=== PATIENT | female | born 1995 | race Two or more races ===

== ENCOUNTER → 2024-03-03 | Outpatient (CLI) | payer SELFPAY ==
--- NOTE | 2024-03-03 13:30 | XR_ITS ---
Examination: CT soft tissue neck, with intravenous contrast. 2-D coronal reconstructions. 2-D sagittal reconstructions. Date and time of exam :March 03, 2024 1531 hours INDICATIONS: Palpable mass left neck beginning 4 months ago, ultrasound soft tissue neck September 13, 2023 lymph nodes in the area concern left neck 9 mm, 7 mm. CTDI: vol (mGy):10.5 DLP: (mGycm):316 Technique: 1.25 mm axial sections of the neck of the obtained. Coronal and sagittal reconstructions have been obtained. Intravenous contrast administered 60 cc Isovue-370. Low dose protocols were performed. One or more of the following dose reduction techniques were used; automated exposure control, adjustment of the mA and/or KV according to patient size, use of iterative reconstruction technique. Findings: Symmetrical nasopharynx oropharynx Subcentimeter bilateral carotid triangle lymph nodes Subcentimeter posterior cervical lymph nodes The larynx appears normal Symmetrical thyroid lobes Normal epiglottis No prevertebral soft tissue prominence IMPRESSION: No pathologic cervical lymphadenopathy Recommend 3 month follow-up ultrasound soft tissue of any palpable neck masses
[2024-03-03 13:32] LABS: HCG Qualitative,Urine Negative
== END | disposition home or self-care (01) ==
PROVIDERS: PCP Physician Assistant; Referring Provider Nurse Practitioner Family; Visit Provider Nurse Practitioner Family
DX: D64.9 Anemia, unspecified (principal); D50.9 Iron deficiency anemia, unspecified; Z32.00 Encounter for pregnancy test, result unknown
CPT/HCPCS: 70491; 81025; A4649; Q9967

== ENCOUNTER 2024-04-07 09:55 | Outpatient (RCR) | payer MEDICAID, SELFPAY | END 2024-04-24 23:59 | disposition home or self-care (01) | LOC: SCTC 09:55 | PROVIDERS: PCP Physician Assistant; Referring Provider Nurse Practitioner Family; Visit Provider Nurse Practitioner Family | DX: D50.9 Iron deficiency anemia, unspecified (principal); N92.0 Excessive and frequent menstruation with regular cycle; Z98.84 Bariatric surgery status; E53.8 Deficiency of other specified B group vitamins; R22.1 Localized swelling, mass and lump, neck | CPT/HCPCS: 99212; G0463 ==

== ENCOUNTER 2024-06-17 15:41 | Emergency (ER) | payer MEDICAID, SELFPAY ==
[2024-06-17 15:43] VITALS: BMI 34.7
[2024-06-17 16:05] VITALS: BP 102/69; PULSE 80; RESP 18; TEMP 37.1; O2SAT 98
--- NOTE | 2024-06-17 16:58 | PD.EDRME ---
Rapid Medical Screening Exam RME Arrival date/time: 06/17/24 15:41 28-year-old female with no known medical history presents to the emergency room with a chief complaint of a sore throat, near syncopal episode that occurred today while driving, and a throbbing headache since Saturday. I have greeted and performed a focused initial assessment of this patient. A comprehensive ED assessment and evaluation of the patient, analysis of all test results, and completion of the medical decision making process will be conducted by additional ED providers. Chief Complaint: Flu Like Symptoms Time Seen by Provider: 06/17/24 16:11 Vital signs: Vital Signs Temperature 98.7 F 06/17/24 16:05 Pulse Rate 80 06/17/24 16:05 Respiratory Rate 18 06/17/24 16:05 Blood Pressure 102/69 06/17/24 16:05 Pulse Oximetry (%) 98 06/17/24 16:05 Oxygen Delivery Method Room Air 06/17/24 16:05 Vital signs reviewed by provider: Yes
[2024-06-17 16:59] LABS: Basophils % (Auto) 1 % (0-2.5); Eosinophils # (Auto) 0.1 Thou/mm3 (0.0-0.5); Eosinophils % (Auto) 1 % (0-10); Hematocrit 22.5 % (36.0-46.0); Immature Granulocytes % (Auto) 0 % (0-0); Immature Granulocytes Auto 0.03 Thou/mm3 (0.00-0.00); Lymphocytes % (Auto) 22 % (10-50); Mean Corpuscular HGB Conc 31.1 g/dl (31.0-37.0); Mean Corpuscular Hemoglobin 23.5 pg (25.0-35.0); Mean Corpuscular Volume 76 fL (80-100); Monocytes # (Auto) 0.7 Thou/mm3 (0.0-0.8); Monocytes % (Auto) 8 % (0-12); Neutrophils # (Auto) 6.1 Thou/mm3 (1.8-7.7); Neutrophils % (Auto) 69 % (37-80); Nucleated Red Blood Cell % 0 /100 WBC (0); Platelet Count 268 Thou/mm3 (140-440); RDW Standard Deviation 41.6 fL (36.4-46.3); Red Blood Count 2.98 Miln/mm3 (4.00-5.20); White Blood Count 8.8 Thou/mm3 (3.6-11.0)
[2024-06-17 17:07] LABS: Alanine Aminotransferase 9 U/L (10-49); Albumin, Serum 4.1 gm/dL (3.5-5.0); Albumin/Globulin Ratio 1.6 (1.2-2.2); Alkaline Phosphatase 82 U/L (46-116); Anion Gap 9 (7-16); Aspartate Amino Transferase 12 U/L (0-34); BUN/Creatinine Ratio 22 Ratio (12-20); Bilirubin,Total 0.3 mg/dL (0.3-1.2); Blood Urea Nitrogen 13 mg/dL (9-23); Calcium 9.1 mg/dL (8.3-10.6); Calcium (Corrected) 9.1 mg/dL (8.5-10.1); Carbon Dioxide 23.7 mMol/L (20.0-31.0); Chloride 104 mMol/L (98-107); Creatinine (Component) 0.6 mg/dL (0.6-1.3); Estimated Creatinine Clearance 144.8 mL/min (>60); Globulin 2.5 gm/dL (2.3-3.5); Glucose 88 mg/dL (74-106); Osmolality,Calculated 272 (275-295); Potassium 4.2 mMol/L (3.4-5.1); Sodium 137 mMol/L (136-145); Total Protein 6.6 gm/dL (5.7-8.2); eGFR > 60 See Note
[2024-06-17] MEDS: METOCLOPRAMIDE LIQD 10 MG/10 ML UDC PO (17:28)
[2024-06-17] MEDS: KETOROLAC INJ 60 MG/2 ML VIAL 30 MG IM (17:29)
[2024-06-17] MEDS: SUMAtriptan INJ 6 MG/0.5 ML VIAL SC (17:29)
[2024-06-17 17:42] LABS: Strep A Rapid Positive (Negative)
--- NOTE | 2024-06-17 18:45 | EDNOTE_ITS ---
Upper Respiratory Inf. RME/HPI General Chief Complaint: Flu Like Symptoms Stated Complaint: Sore throat, near syncope, PAIGE Time Seen by Provider: 06/17/24 16:11 Arrival date/time: 06/17/24 15:41 28F with history of MARILUZ presents to ED with several days of sore throat and PAIGE. There was also a near syncopal episode today while driving. Patient recently had an . Patient has been taking her iron supplements and is working with a securities counselor. Limitations: no limitations RME / HPI RME / HPI Narrative: 06/17/24 15:41 28-year-old female with no known medical history presents to the emergency room with a chief complaint of a sore throat, near syncopal episode that occurred today while driving, and a throbbing headache since Saturday. I have greeted and performed a focused initial assessment of this patient. A comprehensive ED assessment and evaluation of the patient, analysis of all test results, and completion of the medical decision making process will be conducted by additional ED providers. Related Data Previous Rx's ?Medication ?Instructions ?Recorded amoxicillin 500 mg tablet 500 mg PO BID 10 days #20 ta bs 06/18/24 Allergies Allergy/AdvReac Type Severity Reaction Status Date / Time sulfamethoxazole (From Allergy Verified 06/17/24 15:43 Bactrim) trimethoprim (From Bactrim) Allergy Verified 06/17/24 15:43 Review of Systems Review of Systems Systems Reviewed: All systems reviewed, normal except as documented Constitutional Constitutional: Reports system reviewed and no additional complaints, except as documented, Reports as per HPI, Denies fever(s), Reports headache(s) and Reports weakness ENT Ears, Nose, Mouth, and Throat: Reports as per HPI, Denies disequilibrium, Reports headache(s) and Reports sore throat Cardiovascular Cardiovascular: Reports system reviewed and no additional complaints, except as documented, Denies chest pain and Denies dyspnea Respiratory Respiratory: Reports system reviewed and no additional complaints, except as documented, Denies cough and Denies dyspnea Gastrointestinal Gastrointestinal: Reports system reviewed and no additional complaints, except as documented, Denies abdominal pain, Denies nausea and Denies vomiting Neurologic Neurologic: Reports system reviewed and no additional complaints, except as documented, Reports as per HPI, Denies confusion, Denies disequilibrium, Reports headache(s), Reports weakness and Reports other (near syncope) Psychiatric Psychiatric: Denies confusion Past Medical History Social History SMOKING STATUS: Never smoker ED Exam General Limitations: Present no limitations General appearance: Present alert and in no apparent distress Head Head exam: Present atraumatic Eye Eye exam: Present normal appearance, PERRL and EOMI ENT ENT exam: Present mucous membranes moist Expanded ENT Exam Throat exam: Present tonsillar erythema; Absent tonsillomegaly, tonsillar exudate, R peritonsillar mass, L peritonsillar mass or muffled voice Neck Neck exam: Present normal inspection, full ROM and trachea midline Chest Chest inspection: Present normal inspection and symmetric chest wall rise Respiratory Respiratory exam: Present normal lung sounds bilaterally Cardiovascular Cardiovascular exam: Present regular rate, normal rhythm and normal heart sounds Abdominal Exam Abdominal exam: Present soft and normal bowel sounds Extremities Exam Extremities exam: Present normal inspection and full ROM Back Exam Back exam: Present normal inspection and full ROM Neurological Exam Neurological exam: Present alert, oriented X3 and CN II-XII intact Psychiatric Psychiatric exam: Present normal affect and normal mood Skin Skin exam: Present warm, dry, intact and normal color Course Quality Measures none Orders Category Date Time Status Bedside COVID-19 Antigen Test NOW Care 06/17/24 16:00 Active Bedside Influenza A&B Antigen Test NOW Care 06/17/24 16:00 Completed Insert IV NOW Care 06/17/24 18:46 Active CBC Stat Lab 06/17/24 16:30 Completed CMP [Comprehensive Metabolic Panel] Stat Lab 06/17/24 16:30 Completed Strep A Rapid Stat Lab 06/17/24 16:17 Completed Type and Screen Stat Lab 06/17/24 18:58 Results prbc [Red Blood Cells] Stat Lab 06/17/24 18:58 Results Ketorolac Inj [Toradol Inj] Med 06/17/24 16:10 Discontinued 30 mg IM X1 ONE Metoclopramide [Reglan] Med 06/17/24 16:10 Discontinued 10 mg PO X1 ONE SUMAtriptan INJ [Imitrex Inj] Med 06/17/24 16:10 Discontinued 6 mg SC X1 ONE cefTRIAXone/D5w 1gm IV premix [Rocephin/D5w 1gm IV Med 06/17/24 18:47 Discontinued premix] 1 gm in 50 ml IV X1 Vital Signs Vital signs: Vital Signs Temperature 98.7 F 06/17/24 16:05 Pulse Rate 80 06/17/24 16:05 Respiratory Rate 18 06/17/24 16:05 Blood Pressure 102/69 06/17/24 16:05 Pulse Oximetry (%) 98 06/17/24 16:05 Oxygen Delivery Method Room Air 06/17/24 16:05 O2 at 98% on RA and WNLs Upper Respiratory Infection MDM Narrative MDM Narrative:: 28F with history of MARILUZ presents to ED with several days of sore throat and PAIGE. There was also a near syncopal episode today while driving. Patient recently had an . Patient has been taking her iron supplements and is working with a securities counselor. Physical exam reveals normal pupil response and EOM. Red oropharynx, but otherwise clear ENT and lungs. Patient is afebrile, calm, and alert. PAIGE improved with meds. Strep+. HgB 7.0. 2 units given w/o incident. French Weaver given. Patient data External records reviewed:: [facility] previous records Clinical information provided by:: patient Social determinants that could affect healthcare access:: none Patient has the following chronic illnesses:: MARILUZ How is presenting disease/condition affected by chronic disease/condition?: exacerbated by Evaluation data The following diagnostics were reviewed and interpreted by me:: lab results Lab and/or radiology exams considered but not ordered:: ordered Interpretation Summary: above Medications / Prescriptions Medications or Prescriptions considered but not ordered:: ordered Medication administrations:: Medication Administration History Discontinued Medications Ceftriaxone Sodium/Dextrose (Rocephin/D5w 1gm Iv Premix) 1 gm in 50 mls @ 100 mls/hr IV X1 ONE Stop: 06/17/24 19:16 Last Infusion: 06/17/24 20:28 Dose: Infused Documented By: Admin: 06/17/24 19:47 Dose: 100 mls/hr Documented By: DAVID Ketorolac Tromethamine (Ketorolac Inj 60 Mg/2 Ml Vial) 30 mg IM X1 ONE Stop: 06/17/24 16:11 Last Admin: 06/17/24 17:29 Dose: 30 mg Documented By: DAVID Metoclopramide HCl (Metoclopramide Liqd 10 Mg/10 Ml Udc) 10 mg PO X1 ONE Stop: 06/17/24 16:11 Last Admin: 06/17/24 17:28 Dose: 10 mg Documented By: DAVID Sumatriptan Succinate (Sumatriptan Inj 6 Mg/0.5 Ml Vial) 6 mg SC X1 ONE Stop: 06/17/24 16:11 Last Admin: 06/17/24 17:29 Dose: 6 mg Documented By: MP above Consultations Consultation(s) initiated? (list below): No Diagnosis Upper Respiratory Differential Diagnosis: upper respiratory infection, croup, otitis media, sinusitis, viral infection, bronchitis, influenza, pharyngitis and other (anemia) Most likely diagnosis given after review of the tests above:: strep and anemia Admission Indicated Admission indicated?: not indicated Admission Request Was there a request for admission?: No Disposition Plan Disposition Plan: Discharge Discharge Attestation Discharge Attestation: The patient and all family members were given an opportunity to ask questions and understood the discharge instructions. Discharge instructions specifically effects, indications for sooner follow up or return to the emergency department, and the expected course of current diagnosis. Patient condition: Stable Discharge Plan Plan Patient Disposition: HOME (Self Care) Disposition Comment: Stable Prescriptions/Referrals Prescriptions/Med Rec: New amoxicillin 500 mg tablet 500 mg PO BID 10 Days Qty: 20 0RF Referrals: No Primary/Family,Physician [Primary Care Provider] - In 1 week Problem List Clinical Impression: Acute streptococcal pharyngitis, Anemia Patient/Caregiver Discharge Instructions Education Materials: ED Pharyngitis, Strep (Confirmed) Additional Instructions: Please follow-up with PCP within 24-48 hours and return immediately if symptoms worsen. Recommend follow-up with securities counselor about your anemia. Print Language: Hungarian Stand Alone Forms: Patient Portal Info Letter SAURABH/IDALIA Supervising Physician SAURABH/IDALIA Supervising Physician: Dr. Adams
[2024-06-17] MEDS: cefTRIAXone/D5w 1gm IV premix 1 GM/50 ML BAG IV (19:47)
[2024-06-18] VITALS (10 sets, daily range): BP systolic 100–108; BP diastolic 55–74; PULSE 69–81; RESP 16–18; TEMP 36.7–36.9; O2SAT 99–100
--- NOTE | 2024-06-18 02:59 | PC.NURSE ---
P has finished first unit of blood. Tollerated without issues. second unit in progress.
--- NOTE | 2024-06-18 05:07 | PC.NURSE ---
Unit [id number] was ended at 2275. Pt tolerated well. No SS of reaction. VS WNL. Due to technicality , i am unable to chart in [facility]. IT notified.
== END 2024-06-18 05:25 | disposition home or self-care (01) ==
PROVIDERS: Nurse Practitioner Family; Emergency Provider Emergency Medicine
DX: D64.9 Anemia, unspecified (principal); J02.0 Streptococcal pharyngitis
CPT/HCPCS: 36415; 36430; 80053; 85025; 86850; 86900; 86901; 86923; 87400; 87651; 87811; 96365; 96372; 99285; J0696; J1885; J3030; P9016; A9270